=== PATIENT | female | born 2000 | race Caucasian/White ===

== ENCOUNTER 2018-01-02 22:25 | Emergency (ER) | payer SELFPAY ==
[2015-02-09 18:59] VITALS: BMI 65.3
[~2018-01-02 22:25] MED LIST: CELEXA20 MG PO; TOPAMAX25 MG PO; VITAMIN D3400 UNI1 PO
== END 2018-01-02 23:33 | disposition home or self-care (01) ==
LOC: D.ER 22:25
DX: J11.1 Influenza due to unidentified influenza virus with other respiratory manifestations (principal)

== ENCOUNTER 2018-01-28 22:22 | Emergency (ER) | payer SELFPAY ==
[2015-02-09 18:59] VITALS: BMI 65.3
[2018-01-28 23:10] LABS: HCG URINE NEGATIVE (NEGATIVE)
== END 2018-01-29 00:21 | disposition home or self-care (01) ==
LOC: D.ER 22:22
PROVIDERS: Emergency Medicine
DX: R51 Headache (principal); F07.81 Postconcussional syndrome; V43.62XA Car passenger injured in collision with other type car in traffic accident, initial encounter; Y93.89 Activity, other specified; Y92.410 Unspecified street and highway as the place of occurrence of the external cause

== ENCOUNTER → 2019-07-09 08:25 | Outpatient (CLI) | payer OTHER ==
[2015-02-09 18:59] VITALS: BMI 65.3
[2019-07-10 08:11] LABS: IMMUNOGLOBULIN A 189 mg/dL (87-352)
== END | disposition home or self-care (01) ==
LOC: D.NM 08:25
PROVIDERS: ATTEND Internal Medicine Gastroenterology
DX: R11.2 Nausea with vomiting, unspecified (principal); R10.9 Unspecified abdominal pain